=== PATIENT | male | born 1995 ===

== ENCOUNTER 2020-04-27 07:09 | Emergency (ER) | payer SELFPAY ==
[~2020-04-27] VITALS: Ht 165.1 cm; Wt 91.1 kg
[2020-04-27 08:48] VITALS: BP 116/81
--- NOTE | 2020-04-27 10:17 | NUR ---
Patient given discharge instructions and they have confirmed that they understand the instructions. Patient ambulatory with steady gait.
== END 2020-04-27 10:18 | disposition home or self-care (01) ==
LOC: ED 08:04
DX: R07.1 Chest pain on breathing (principal); Z20.828 Contact with and (suspected) exposure to other viral communicable diseases; R07.89 Other chest pain; R50.9 Fever, unspecified
CPT/HCPCS: 71045; 87635; 93005; 99285